=== PATIENT | female | born 1980 | race Two or more races ===

== ENCOUNTER → 2024-09-17 | Outpatient (CLI) | payer MEDICAID, SELFPAY ==
--- NOTE | 2024-09-17 08:15 | XR_ITS ---
Examination: Screening digital mammography, bilateral Computer aided detection 3-D breast Tomosynthesis, bilateral Date and time of exam: September 17, 2024 0838 hours Indication: Screening Technique: Nonmagnified MLO, CC views of the breasts to been obtained, reconstructed from 3-D Tomosynthesis images. R2 computer aided detection program utilized for evaluation of suspicious masses and/or abnormal calcifications. 3-D Tomosynthesis images obtained. Findings: The breasts are heterogeneously dense, which may obscure small masses 8 mm focal asymmetry upper left breast MLO view, 5 cm from the nipple Benign calcifications Impression: BI-RADS Category 0: Incomplete: Need additional imaging evaluation 8 mm focal asymmetry upper left breast MLO view, 5 cm from the nipple, recommend follow-up spot tomographic views upper outer quadrant left breast, left breast sonography to complete the workup
== END | disposition home or self-care (01) ==
LOC: CDIM 08:29
PROVIDERS: Referring Provider Student in an Organized Health Care Education/Training Program; Visit Provider Student in an Organized Health Care Education/Training Program
DX: Z12.31 Encounter for screening mammogram for malignant neoplasm of breast (principal); N64.89 Other specified disorders of breast
CPT/HCPCS: 77063; 77067

== ENCOUNTER → 2024-12-01 | Outpatient (CLI) | payer MEDICAID, SELFPAY ==
--- NOTE | 2024-12-01 09:15 | XR_ITS ---
Examination: Breast ultrasound, unilateral, left complete Date and time of exam: December 01, 2024 at 0942 hrs. Indications: Mammogram September 17, 2024 8 mm focal asymmetry upper left breast MLO view, 5 cm from the nipple, family history breast cancer Technique: Real-time sanchez scale ultrasonographic imaging performed left breast including all 4 quadrants as well as nipple retroareolar and axillary region. Findings: No cystic or solid mass Impression: BI-RADS Category 1: Negative study
--- NOTE | 2024-12-01 09:45 | XR_ITS ---
Examination: Diagnostic digital mammography, unilateral, left Computer aided detection 3-D breast Tomosynthesis, unilateral Date and time of exam: 12/01/2024, 9:50 AM Comparisons: 09/17/2024 Indications: Further evaluation of asymmetry seen on recent screening exam. Technique: Nonmagnified MLO, CC views of the left breast have been obtained, reconstructed from 3-D Tomosynthesis images. R2 computer aided detection program utilized for evaluation of suspicious masses and/or abnormal calcifications. 3-D Tomosynthesis images obtained. Technologist: Findings: The breasts are heterogeneously dense, which may obscure small masses. No evidence of abnormal masses or suspicious calcifications. The previously described asymmetry does not persist on spot compression views and represents superimposition of normal fibroglandular tissue. Impression: BI-RADS category 1: Negative findings (within normal) Recommend 1 year follow-up mammogram
== END | disposition home or self-care (01) ==
LOC: CDIM 09:18
PROVIDERS: PCP Student in an Organized Health Care Education/Training Program; Referring Provider Student in an Organized Health Care Education/Training Program; Visit Provider Student in an Organized Health Care Education/Training Program
DX: N63.21 Unspecified lump in the left breast, upper outer quadrant (principal); R92.312 Mammographic fatty tissue density, left breast; Z80.3 Family history of malignant neoplasm of breast
CPT/HCPCS: 76641; 77061; 77065; G0279